=== PATIENT | female | born 1960 | race African-American/Black ===

== ENCOUNTER 2016-12-10 09:40 | Inpatient (IN) ==
[2016-12-10 10:13] LABS: Basophils % 0.3 % (0.0-0.8); Eosinophils # 0.2 10*3/uL (0.0-0.87); Eosinophils % 2.2 % (0.00-10.9); Hematocrit 44.7 VOL% (35.7-47.0); Hemoglobin 15.6 GM/DL (12.0-16.0); Immature Granulocytes % 0.4 %; Immature Granulocytes Absolute 0.04 #; Lymphocytes # 3.8 10*3/uL (1.4-4.0); Lymphocytes % 36.6 % (21.3-54.2); Mean Corpuscular HGB Conc 34.9 GM/DL (32-36); Mean Corpuscular Hemoglobin 31 PG (27-34); Mean Corpuscular Volume 87.6 FL (87-102); Mean Platelet Volume 10.3 FL (9.6-12.0); Monocytes # 0.7 10*3/uL (0.11-0.8); Monocytes % 6.7 % (1.7-12.7); Neutrophils # 5.7 10*3/uL (1.4-7.4); Neutrophils % 53.8 % (38.7-73.9); Platelet Count 253 T/CUMM (130-400); Red Cell Distribution Width 13.7 % (9.3-17.3); White Blood Count 10.5 T/CUMM (4-12)
--- NOTE | 2016-12-10 10:21 | CT Report ---
CT brain Indication: Syncope Comparison: 05 December 2015 Technique: Axial CT imaging of the brain is performed without contrast with 3 mm increments. Findings: No evidence of hemorrhage, mass mass effect midline shift or acute infarct seen. The brain parenchyma attenuation and differentiation appears within normal limits. The ventricles and cisterns are normal in caliber. No cranial or skull base abnormality is identified. Impression: No evidence of acute process demonstrated. This CT exam was performed using one or more the following dose reduction techniques: Automated exposure control, adjustment of the MA and/or KV according to patient size, or use of iterative reconstruction technique. PROCEDURE INTERPRETED AT [facility] DEPARTMENT OF RADIOLOGY Final Report Signed by: Dr. Dejon Hairston
[2016-12-10 10:51] LABS: Alanine Aminotransferase 34 U/L (13-56); Albumin 4.3 G/DL (3.4-5.0); Alkaline Phosphatase 95 U/L (45-117); Aspartate Amino Transferase 27 U/L (0-37); Blood Urea Nitrogen 13 MG/DL (7-18); Calcium 9.8 MG/DL (8.5-10.1); Glucose 104 MG/DL (74-106); Magnesium 2.6 MG/DL (1.8-2.4); Osmolality,Calculated 269.1 MOS/KG (273-304); Sodium 135 MMOL/L (136-145); Total Protein 8.4 G/DL (6.4-8.3); Troponin I Only < 0.015 NG/ML (0.00-0.045)
[2016-12-10] MEDS ORDERED: ALBUTEROL/IPRATROPIUM 3 ML NEB RESP TX STA (11:17)
[2016-12-10] MEDS ORDERED: METHOCARBAMOL 500 MG TABLET PO PRN (11:21)
--- NOTE | 2016-12-10 11:21 | Emergency Department Note ---
Gianni Fuentes Manpreet, am scribing for, and in the presence of, Edmund Sanchez MD 10:31. Daniel Fuentes Phillip K, MD, personally performed the services described in this documentation, ascribed by Andrew Archer in my presence, and it is both accurate and complete . Arrival - Arrival Chief Complaint: Syncope ED Nursing Triage Note: pt was doing PT and when she went to stand up she passed out. Mode of Arrival: Stretcher Limitations: No Limitations Source: Patient, Family (Son), Bystander (PT report) Time Seen by Provider: 12/10/16 09:59 - History of Present Illness HPI Narrative: 56 y/o female who presents to the ED S/P having a syncopal episode when doing PT this AM. Pt states she does not know what happened. 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 Pt's son states they walked to PT this AM from home. Pt currently c/o cough, SOB, left-sided tingling. Pt reports of tobacco use qd at home but also takes breathing treatments. Pt sates she woke up with muscle cramps this AM. According to PT report, the pt initially reported to PT with shoulder pain which was relieved with ROM exercises. Pt was passed out for 2 minutes per PT report. No other pains/complaints reported to the ED. Onset (ago): hour(s) (This AM) Consistency: now resolved Severity: mild Allergies/Adverse Reactions: Allergies Allergy/AdvReac Type Severity Reaction Status Date / Time Penicillins AdvReac Swelling Verified 07/05/15 14:27 of Lip/Tongue/Throat Home Medications: Home Medications Medication Instructions Recorded Confirmed Type Albuterol Neb [Proventil Neb] 2.5 mg RESP TX Q4H PRN 12/05/15 12/10/16 History Methocarbamol Tab [Robaxin Tab] 500 mg PO QID PRN #20 tablet 12/05/15 12/10/16 Rx Amlodipine Besylate 5 mg PO QAM 12/10/16 12/10/16 History Ipratropium/Albuterol Inhaler 1 puff INH QID 12/10/16 12/10/16 History [Combivent Respimat Inhaler] Meloxicam [Mobic] 7.5 mg PO QAM 12/10/16 12/10/16 History Tramadol HCl [Tramadol Tab] 50 mg PO BID 12/10/16 12/10/16 History Review of System - Review of System 12 point system: reviewed and no additional remarkable complaints except as stated - Review of System Constitutional: Absent: chills, diaphoresis, fever Respiratory: Present: cough, respiratory distress, wheezing Cardiovascular: Present: syncope. Absent: chest pain Gastrointestinal: Present: abdominal pain. Absent: nausea, vomiting, diarrhea Genitourinary female: Absent: dysuria Musculoskeletal: Absent: arm pain, back pain Neurological: Present: paresthesias (in Left leg). Absent: headache, weakness, numbness Medical,Surgical,& Family Hx - Medical History Cardio: History of: Hypertension Psychological: History of: Anxiety Disorders, Behavior Problems, Bipolar Disorder, Psychiatric/Substance Abuse Tx (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.), Schizophrenia, Psychiatric Problems ("nerves") Neurology: History of: TIA HEENT: History of: Dental Problems Rheumatology: History of;: Rheumatological Problems Respiratory: History of: Asthma Musculoskeletal: History of: Back/Neck Problems - Surgical History Abdominal Surgeries: Surgical HX of: Abdominal Surgery (unspecified bowel surgery) - Family History Family History: Reports;: Family Cancer (mother , sister), Family Diabetes ( mother,sister), Family Heart Disease (sister), Family Stroke (sister) - Social History Smoking Status: Never smoker Frequency of Alcohol Use: None Type of Drug Use: None Exam Vital Signs: Vital Signs Temperature 97.7 F 12/10/16 09:41 Pulse Rate 87 12/10/16 09:41 Respiratory Rate 16 12/10/16 09:58 Blood Pressure 142/92 12/10/16 09:41 O2 Sat by Pulse Oximetry 100 12/10/16 09:41 - General General appearance: alert - Head Head exam: Present: atraumatic, normocephalic, normal inspection - Eye Eye exam: Present: normal appearance, PERRL, EOMI - ENT ENT exam: Present: normal exam, normal oropharynx, mucous membranes moist, TM's normal bilaterally - Neck Neck exam: Present: normal inspection, full ROM, trachea midline. Absent: tenderness - Chest Chest inspection: Present: normal inspection, symmetric chest wall rise - Respiratory Respiratory exam: Present: wheezes. Absent: respiratory distress - Cardiovascular Cardiovascular exam: Present: regular rate, normal rhythm, normal heart sounds. Absent: murmur, rubs, gallop - Abdominal Exam Abdominal exam: Present: soft, normal bowel sounds. Absent: distention, tenderness, guarding - Extremities Exam Extremities exam: Present: normal inspection. 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 Absent: tenderness - Neurological Exam Neurological exam: Present: alert, oriented X3. Absent: CN II-XII intact - Psychiatric Psychiatric exam: Present: normal affect, normal mood - Skin Skin exam: Present: warm, dry, intact, normal color. Absent: pallor Results - Labs CBC & BMP: 12/10/16 09:54 12/10/16 09:54 Lab Results: I have reviewed the patients labs Labs: Laboratory Tests 12/10/16 09:54 WBC 10.5 RBC 5.10 Hgb 15.6 Hct 44.7 MCV 87.6 MCH 31 MCHC 34.9 RDW 13.7 Plt Count 253 MPV 10.3 Laboratory Tests 12/10/16 09:54 Sodium 135 L Potassium 5.0 Chloride 107 Carbon Dioxide 21 Anion Gap 12.0 BUN 13 Creatinine 1.10 H GFR Calculation 58 BUN/Creatinine Ratio 11.00 Glucose 104 Calculated Osmolality 269.1 L Calcium 9.8 Magnesium 2.6 H AST 27 Total Protein 8.4 H Globulin 4.1 H Albumin/Globulin Ratio 1.0 L - EKG EKG results: interpreted by [facility], sinus rhythm (Old septal GA) - Diagnostic Findings Procedure: Chest x-ray: image reviewed by me (Nothing acute), CT: report reviewed by me ("CT brain w/o con: No evidence of acute process demonstrated.") Disposition Clinical Impression: Syncope, Possible CVA with left hemiparesis Clinical Impression: (Ruled Out): Case discussed with: patient Disposition: Still a Patient Condition: Guarded Additional Instructions: Admit to the hospitalist.
[2016-12-10] MEDS ORDERED: ALBUTEROL 2.5 MG/3 ML NEB RESP TX PRN (11:23)
--- NOTE | 2016-12-10 11:37 | XRay Report ---
XR chest 1V portable Indication: Shortness of breath Comparison: 16 July 2016 Findings: The heart and mediastinum are normal in size and configuration. The pulmonary vascularity is normal in caliber. No lung infiltrates, effusions, pneumothorax or other abnormality is demonstrated. Impression: Normal chest x-ray PROCEDURE INTERPRETED AT [facility] DEPARTMENT OF RADIOLOGY Final Report Signed by: Dr. Dejon Hairston
[2016-12-10 11:45] LABS: Barbiturates Screen,Urine Negative (Negative); Benzodiazepines Screen,Urine Negative (Negative); Cannabinoid Screen,Urine Positive (Negative); Opiate Screen,Urine Negative (Negative); Phencyclidine Screen,Urine Negative (Negative)
--- NOTE | 2016-12-10 12:18 | Hospitalist History & Physical ---
<Brian Pineda - Last Filed: 12/10/16 11:50> Assessment and Plan (1) Nicotine addiction Status: Acute Assessment and plan: The patient reports current cigarette and marijuana use. Discussed with patient in great detail with the merits associated with resuscitation of both cigarette and marijuana use. The patient reports that she currently smokes both cigarettes and marijuana because she "has nothing else to do". Nicotine patch has been offered and ordered for use during the clinical encounter. Current Visit: Yes Qualifiers: Nicotine product type: cigarettes (2) Syncope Status: Acute Assessment and plan: Witnessed syncope episode during the patient's outpatient therapy session. The patient reports that she has had episodes similar in the past and attributed them to her asthma exacerbation. We will obtain carotid Dopplers. Given the patient's complicated neurological history, we will consult neurology to evaluate. Current Visit: Yes (3) Asthma Status: Acute Assessment and plan: The patient reports current nicotine and marijuana use. She reports that the use of cigarettes and marijuana help "keep her from having asthma attacks". She reports that she has been experiencing frequent asthma attacks since she stopped using crack cocaine. We will start intravenous corticosteroids, inhaled bronchodilators, and gentle rehydration. Current Visit: Yes Qualifiers: Asthma severity: unspecified severity Asthma complication type: with acute exacerbation Qualified Code(s): J45.901 - Unspecified asthma with (acute) exacerbation History of Present Illness Chief complaint: Left-sided weakness/syncope History of present illness: This is a 56-year-old female that presented to the ED at [facility] from the outpatient therapy service department here at [facility] for the further evaluation of left-sided weakness and syncope. The patient has a medical history significant for cerebrovascular accident, hypertension, asthma, anxiety, polysubstance abuse, bipolar disorder, schizophrenia, nicotine addiction, cannabis addiction, transient ischemic attack , and chronic neck and back pain. Patient has a surgical history significant for a bowel surgery. Apparently, the patient was participating in her physical therapy session this morning when the above episode occurred. The patient reported that she was exercising with her therapist when she suddenly started to experience some shoulder pain and experienced a subsequent syncopal episode. A rapid response alert was called by the therapy department. The patient was then accompanied to the ED for further evaluation. The patient was noted to be experiencing respiratory distress at the time of ED presentation. Prolonged bronchodilator treatments were initiated and the patient was placed on high flow supplemental oxygen. Labs were obtained which were significant for sodium 135, creatinine 1.10, magnesium 2.6, total protein 8.4, globulin 4.1, and calculated osmolality 269.1. CT was significantly unremarkable for the presence of hemorrhage, mass, mass-effect, midline shift, or acute infarct. Chest x-ray was significantly unremarkable for the presence of any acute cardiopulmonary processes. Urine toxicology was positive for cannabinoids. After brief discussion with both Dr. Sanchez and Dr. Galindo, the patient will be admitted to the hospitalist service for continuation of care. Due to the complexity of the patient's neurological history, a neurology consultation has been requested. Home medications have been reviewed and reconciled. CODE STATUS discussed; patient is a FULL CODE. Home Medications Medication Instructions Recorded Confirmed Type RX: Albuterol Neb [Proventil Neb] 2.5 mg RESP TX Q4H PRN 12/05/15 12/10/16 History RX: Methocarbamol Tab [Robaxin Tab] 500 mg PO QID PRN #20 tablet 12/05/15 Rx RX: Amlodipine Besylate 5 mg PO QAM 12/10/16 12/10/16 History RX: Ipratropium/Albuterol Inhaler 1 puff INH QID 12/10/16 12/10/16 History [Combivent Respimat Inhaler] RX: Meloxicam [Mobic] 7.5 mg PO QAM 12/10/16 12/10/16 History RX: Tramadol HCl [Tramadol Tab] 50 mg PO BID 12/10/16 12/10/16 History Allergies Allergy/AdvReac Type Severity Reaction Status Date / Time Penicillins AdvReac Swelling Verified 07/05/15 14:27 of Lip/Tongue/Throat Medical,Surgical,& Family Hx - Medical History Cardio: History of: Hypertension Psychological: History of: Anxiety Disorders, Behavior Problems, Bipolar Disorder, Psychiatric/Substance Abuse Tx (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.), Schizophrenia, Psychiatric Problems ("nerves") Neurology: History of: TIA HEENT: History of: Dental Problems Rheumatology: History of;: Rheumatological Problems Respiratory: History of: Asthma Musculoskeletal: History of: Back/Neck Problems - Surgical History Abdominal Surgeries: Surgical HX of: Abdominal Surgery (unspecified bowel surgery) - Family History Family History: Reports;: Family Cancer (mother , sister), Family Diabetes ( mother,sister), Family Heart Disease (sister), Family Stroke (sister) - Social History Smoking Status: Current every day smoker Have you smoked in the last 12 months: Yes Time spent discussing smoking cessation with patient: 3 to 10 minutes Frequency of Alcohol Use: Occasionally Type of Drug Use: None, Marijuana Marital Status: Single Lives With:: Alone Functional capacity: independent ambulation 12 point system: reviewed and no additional remarkable complaints except as stated Exam - Constitutional Vitals: Period Temp Pulse Resp BP Sys/Powell Pulse Ox Last 24 Hr 97.7 F-97.7 F 87-123 16-28 142-142/92-92 95-100 General appearance: normal weight, no acute distress - Head Head exam: Present: normal inspection, normocephalic, atraumatic - Eye Eye exam: Present: EOMI. Absent: conjunctival injection Pupils: Present: YAZAN, normal accommodation - ENT ENT exam: Present: normal exam, normal external ear exam, normal oropharynx - Neck Neck exam: Present: normal inspection. Absent: lymphadenopathy, meningismus, tenderness, thyromegaly - Respiratory Respiratory exam: Present: wheezes. Absent: rales, rhonchi, stridor - Cardiovascular Cardiovascular exam: Present: bradycardia, irregular rhythm, regular rate and rhythm. Absent: carotid bruit, diastolic murmur, gallop, JVD, rubs, systolic murmur - GI/Abdominal GI/Abdominal exam: Present: normal bowel sounds, soft - Extremities Exam Extremities exam: Present: normal inspection, normal capillary refill, full ROM , edema, other (Left upper extremity and lower extremity weakness.) - Back Exam Back exam: Present: normal inspection - Neurological Exam Neurological exam: Present: alert, oriented X3, CN II-XII intact, other (Left upper and lower extremity weakness) - Psychiatric Psychiatric exam: Present: normal affect - Skin Skin exam: Present: normal color, warm, dry Results - Labs CBC & BMP: 12/10/16 09:54 12/10/16 09:54 Lab Results: I have reviewed the past 24 hour labs <Uli Galindo - Last Filed: 12/10/16 16:50> History of Present Illness History of present illness: Patient seen and examined independently of CHAMP Pineda, brenda with history, assessment and plan as documented. Patient being admitted with sob and syncope. Treating for COPD with duonebs and steroids. CT PE negative for PE but did show changes of COPD. Patient reports an ongoing history of syncope. Check orthostatic vitals. Neurology has been consulted. MRI ordered. Exam - Constitutional Vitals: Period Temp Pulse Resp BP Sys/Powell Pulse Ox Last 24 Hr 97.7 F-98.8 F 81-123 16-28 142-149/86-92 95-100 Results - Labs CBC & BMP: 12/10/16 09:54 12/10/16 09:54
--- NOTE | 2016-12-10 12:25 | Ultrasound Report ---
US carotid duplex BI Indication: Syncope. Comparison: None. Technique: Multiple longitudinal and transverse real-time sonographic images of the bilateral carotid arterial systems are obtained with grayscale, spectral, and color Doppler analysis. Findings: Peak systolic velocities within the right CCA, proximal ICA, and distal ICA are 77, 38, and 73 cm/s respectively. Peak systolic velocities within the left CCA, proximal ICA, and distal ICA are 60, 39, and 64 cm/s respectively. ICA/CCA ratios on the right and left are 0.9 and 1.1 respectively. Antegrade flow demonstrated within the bilateral vertebral arteries. Grayscale imaging demonstrates mild bilateral atherosclerotic plaque. IMPRESSION: No convincing sonographic evidence of significant (50% or greater) narrowing of either cervical internal carotid artery. Indirect NASCET criteria utilized. PROCEDURE INTERPRETED AT [facility] DEPARTMENT OF RADIOLOGY Final Report Signed by: Dr Sam Kimbrough
[2016-12-10] MEDS ORDERED: diphenhydrAMINE CAP 25 MG CAPSULE PO PRN (12:34)
[2016-12-10] MEDS ORDERED: ONDANSETRON 4 MG/2 ML VIAL IV PRN (12:34)
[2016-12-10] MEDS: ALBUTEROL/IPRATROPIUM 3 ML NEB RESP TX SCH ×2 (14:34→19:15)
[2016-12-10] MEDS: methylPREDNISolone SOD SUC 125 MG/2 ML VIAL IV SCH ×3 (14:40→23:11)
[2016-12-10] MEDS: ENOXAPARIN 40 MG/0.4 ML SYRINGE SUBCUT SCH (14:40)
[2016-12-10] MEDS: NICOTINE 21 MG/24 HR PATCH TRANSDERM PRN (14:41)
[2016-12-10] MEDS: SODIUM CHLORIDE 0.9% 1,000 ML IV SCH (14:41)
--- NOTE | 2016-12-10 15:23 | Neurology Consult Note ---
History of Present Illness History of present illness: This is a 56-year-old right-handed medical that presented to the ED at [facility] from the outpatient therapy service department here at [facility] for the further evaluation of left- sided weakness, pain and syncope. The patient has a medical history significant for cerebrovascular accident, hypertension, asthma, anxiety, polysubstance abuse, bipolar disorder, schizophrenia, nicotine addiction, cannabis addiction, transient ischemic attack, and chronic neck and back pain. Apparently, the patient was participating in her physical therapy session this morning when the above episode occurred. The patient reported that she was exercising with her therapist when she suddenly started to experience some shoulder pain and experienced a subsequent syncopal episode. A rapid response alert was called by the therapy department. No generalized tonic-clonic activity reported. No tongue biting or urinary incontinence reported. Patient is presently crying because of significant pain in the left side of the whole body starting from neck to the toe. CT of the head is unremarkable for any acute pathology. Carotid ultrasound is unremarkable as well. Patient does smoke on a regular basis. Home Medications Medication Instructions Recorded Confirmed Type Albuterol Neb [Proventil Neb] 2.5 mg RESP TX Q4H PRN 12/05/15 12/10/16 History Methocarbamol Tab [Robaxin Tab] 500 mg PO QID PRN #20 tablet 12/05/15 12/10/16 Rx Amlodipine Besylate 5 mg PO QAM 12/10/16 12/10/16 History Ipratropium/Albuterol Inhaler 1 puff INH QID 12/10/16 12/10/16 History [Combivent Respimat Inhaler] Meloxicam [Mobic] 7.5 mg PO QAM 12/10/16 12/10/16 History Tramadol HCl [Tramadol Tab] 50 mg PO BID 12/10/16 12/10/16 History Allergies Allergy/AdvReac Type Severity Reaction Status Date / Time Penicillins AdvReac Swelling Verified 07/05/15 14:27 of Lip/Tongue/Throat 12 point system: reviewed and no additional remarkable complaints except as stated Medical,Surgical,& Family Hx - Medical History Cardio: History of: Hypertension Psychological: History of: Anxiety Disorders, Behavior Problems, Bipolar Disorder, Psychiatric/Substance Abuse Tx (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.), Schizophrenia, Psychiatric Problems ("nerves") Neurology: History of: Cerebrovascular Accident (2011), TIA HEENT: History of: Eye Problem (glasses), Dental Problems Rheumatology: History of;: Rheumatological Problems Respiratory: History of: Asthma, COPD, Obstructive Sleep Apnea Gastrointestinal: History of: GERD Musculoskeletal: History of: Amputation (right index finger), Back/Neck Problems - Surgical History Neurologic Surgeries: Patient denies: Neurologic Surgery Abdominal Surgeries: Surgical HX of: Abdominal Surgery (unspecified bowel surgery) Reproductive Surgeries: Surgical HX of;: Hysterectomy (patial) Patient denies;: Genitourinary Surgery - Family History Family History: Reports;: Family Cancer (mother , sister), Family Diabetes ( mother,sister), Family Heart Disease (sister), Family Stroke (sister) - Social History Smoking Status: Current every day smoker Frequency of Alcohol Use: None Type of Drug Use: None, Marijuana Exam - Constitutional Vitals: Period Temp Pulse Resp BP Sys/Powell Pulse Ox Last 24 Hr 97.7 F-97.7 F 87-123 16-28 142-142/92-92 95-100 Exam: GENERAL: Patient is in no acute distress. NECK: Neck is supple. There is no JVD. No carotid bruits present. No thyroid masses. CVS: First and second heart sounds are normal. There is no S3 present. Regular rate and rhythm. RESPIRATORY: Lungs are clear to auscultation without any rales or rhonchi. ABDOMEN: Soft and non-tender. Bowel sounds are present. There is no hepatosplenomegaly. EXT: There is no palpable edema. Peripheral pulses are present. Skin: No rashes Central Nervous system: General: Alert, awake and Oriented x 3 Speech: Fluent Comprehension: Intact and normal Facial expressions: Normal Cranial Nerves: CN1/Olfactory: Normal CN II/ Optic: Normal, Visual Manjarrez unreliable CN III, and : YAZAN & EOMI CN V: Normal & intact CN VII: face is symmetric CNVIII: Normal CN XI/X/XI/XII: Intact and Normal Motor: Bulk and Tone is normal. Strength in the right 5/5 Strength in the left 3/5 with significant giveaway weakness Sensory: Grossly intact for all the modalities of PP, LT and temp sense Reflexes: 1+ and symmetrical Cerebellar function: Normal finger to nose and heel to lawrence testing in the right and she is not participating in the left. Toes: Equivocal Gait: Not tested at this time Results - Labs CBC & BMP: 12/10/16 09:54 12/10/16 09:54 Assessment and Plan (1) Pain of left side of body Status: Acute Assessment and plan: Etiology is not clear. I suspect a cervical disc disease. Consult pain management MRI cervical spine Current Visit: Yes (2) Syncope Status: Acute Assessment and plan: EEG MRI brain Current Visit: Yes
--- NOTE | 2016-12-10 16:09 | CT Report ---
CT the chest with intravenous contrast, PE protocol. Indication: Shortness of breath and chest pain. 80 cc Omni 350. Axial images were obtained with sagittal and coronal 2-D and 3-D reconstructions. Comparison is made with a previous exam from February 02, 2008. There is no evidence of pulmonary thromboembolism. The heart size is normal. There is mild bland plaque in a normal caliber thoracic aorta. There is no pericardial or pleural effusion. There is no mediastinal or hilar lymphadenopathy. The lung rodriguez are hyperexpanded. Centrilobular emphysematous changes are present as well as interstitial fibrosis. Degenerative changes are noted within the spinal column. Impression: Findings of COPD. No evidence of pulmonary thromboembolism. The CT exam was performed using one or more of the following dose reduction techniques: Automated exposure control, adjustment of the mA and/or kV according to patient size, or use of iterative reconstruction technique. PROCEDURE INTERPRETED AT [facility] DEPARTMENT OF RADIOLOGY Final Report Signed by: Dr. Hilda Miranda
[2016-12-10] MEDS: CYCLOBENZAPRINE 10 MG TABLET PO PRN (17:33)
[2016-12-10] MEDS: ACETAMINOPHEN 325 MG TABLET PO PRN (17:38)
[2016-12-10] MEDS: traMADol 50 MG TABLET PO SCH (20:09)
[2016-12-10] MEDS: DOCUSATE SODIUM 100 MG CAPSULE PO SCH (20:09)
[2016-12-10] MEDS: ZALEPLON 5 MG CAPSULE PO PRN (21:44)
[2016-12-11] MEDS: ALBUTEROL/IPRATROPIUM 3 ML NEB RESP TX SCH ×4 (00:05→19:39)
[2016-12-11] MEDS: ACETAMINOPHEN 325 MG TABLET PO PRN (03:14)
[2016-12-11] MEDS: methylPREDNISolone SOD SUC 125 MG/2 ML VIAL IV SCH ×3 (05:07→17:41)
[2016-12-11 06:04] LABS: Hematocrit 41.3 VOL% (35.7-47.0); Hemoglobin 14.1 GM/DL (12.0-16.0); Immature Granulocytes % 0.6 %; Immature Granulocytes Absolute 0.05 #; Lymphocytes # 1.5 10*3/uL (1.4-4.0); Lymphocytes % 17.1 % (21.3-54.2); Mean Corpuscular HGB Conc 34.1 GM/DL (32-36); Mean Corpuscular Hemoglobin 30 PG (27-34); Mean Corpuscular Volume 87.7 FL (87-102); Mean Platelet Volume 11.6 FL (9.6-12.0); Monocytes % 0.5 % (1.7-12.7); Neutrophils # 7.1 10*3/uL (1.4-7.4); Neutrophils % 81.8 % (38.7-73.9); Platelet Count 194 T/CUMM (130-400); Red Blood Count 4.71 MC/CUMM (3.8-5.5); Red Cell Distribution Width 13.3 % (9.3-17.3); White Blood Count 8.6 T/CUMM (4-12)
[2016-12-11] MEDS: SODIUM CHLORIDE 0.9% 1,000 ML IV SCH ×2 (06:44→13:06)
[2016-12-11 06:49] LABS: Band Neutrophils 12 % (0-10); Hypochromasia 1+; Lymphocytes 18 % (20-55); Platelet Estimate Adequate; Segmented Neutrophils 69 % (50-85); Total Cells Counted 100
[2016-12-11 06:57] LABS: Albumin 3.7 G/DL (3.4-5.0); Bilirubin,Total 0.9 MG/DL (0.2-1.0); Calcium 9.7 MG/DL (8.5-10.1); Osmolality,Calculated 273.8 MOS/KG (273-304); Potassium 4.4 MMOL/L (3.5-5.1); Risk Ratio 3.19; Total Protein 7.2 G/DL (6.4-8.3); VLDL CHOLESTEROL 36.6 MG/DL
--- NOTE | 2016-12-11 08:02 | XRay Report ---
Exam: XR chest 1V portable Date: 12/11/2016 4:00 AM Indication: Shortness of breath Comparison: 12/10/2016 Technical: AP Findings: External cardiac leads are present. The heart is normal in size. The mediastinum is unremarkable. The bony structures are intact. Mild thickening of the minor fissure is present. No pneumothorax. Oxygen tubing superimposes exam. Impression: 1. Minimal thickening of the minor fissure without consolidating infiltrates or effusions PROCEDURE INTERPRETED AT [facility] DEPARTMENT OF RADIOLOGY Final Report Signed by: Dr. Josh Clements
--- NOTE | 2016-12-11 08:05 | EKG Report ---
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
--- NOTE | 2016-12-11 08:44 | Neurology Progress Note ---
Neurology - PN : Subjective Interval history: Left-sided pain is better however patient is complaining of some headache today. Slept well last night. MRI of the brain, cervical spine and EEG are all pending. Drug screen is positive for cannabinoids. Exam (Progress Note) - Constitutional Vitals: Period Temp Pulse Resp BP Sys/Powell Pulse Ox Last 24 Hr 97.7 F-98.8 F 81-123 16-28 119-186/72-96 92-100 Exam: GENERAL: Patient is in no acute distress. NECK: Neck is supple. There is no JVD. No carotid bruits present. No thyroid masses. CVS: First and second heart sounds are normal. There is no S3 present. Regular rate and rhythm. RESPIRATORY: Lungs are clear to auscultation without any rales or rhonchi. ABDOMEN: Soft and non-tender. Bowel sounds are present. There is no hepatosplenomegaly. EXT: There is no palpable edema. Peripheral pulses are present. Skin: No rashes Central Nervous system: General: Alert, awake and Oriented x 3 Speech: Fluent Comprehension: Intact and normal Facial expressions: Normal Cranial Nerves: CN1/Olfactory: Normal CN II/ Optic: Normal, Visual Manjarrez unreliable CN III, and : YAZAN & EOMI CN V: Normal & intact CN VII: face is symmetric CNVIII: Normal CN XI/X/XI/XII: Intact and Normal Motor: Bulk and Tone is normal. Strength in the right 5/5 Strength in the left 3/5 with significant giveaway weakness Sensory: Grossly intact for all the modalities of PP, LT and temp sense Reflexes: 1+ and symmetrical Cerebellar function: Normal finger to nose and heel to lawrence testing in the right and she is not participating in the left. Toes: Equivocal Gait: Not tested at this time Results - Labs CBC & BMP: 12/11/16 04:44 12/11/16 04:44 Assessment and Plan (1) Pain of left side of body Status: Acute Assessment and plan: Pending MRI cervical spine Current Visit: Yes (2) Syncope Status: Acute Assessment and plan: Pending EEG Pending MRI brain This could very well be due to recreational drug use/abuse behavior Current Visit: Yes
[2016-12-11] MEDS: traMADol 50 MG TABLET PO SCH ×2 (08:53→20:11)
[2016-12-11] MEDS: PANTOPRAZOLE 40 MG TABLET PO SCH (08:53)
[2016-12-11] MEDS: NICOTINE 21 MG/24 HR PATCH TRANSDERM PRN (08:53)
[2016-12-11] MEDS: amLODIPine 5 MG TABLET PO SCH (08:53)
[2016-12-11] MEDS: MELOXICAM 7.5 MG TABLET PO SCH (08:53)
[2016-12-11] MEDS: CYCLOBENZAPRINE 10 MG TABLET PO PRN (08:53)
[2016-12-11] MEDS: DOCUSATE SODIUM 100 MG CAPSULE PO SCH ×2 (08:53→20:12)
[2016-12-11] MEDS: guaiFENesin 200 MG/10 ML UDCUP PO SCH ×2 (11:22→20:12)
[2016-12-11] MEDS: MORPHINE 2 MG/1 ML SYRINGE IV PRN ×2 (11:22→15:31)
--- NOTE | 2016-12-11 11:32 | XRay Report ---
XR chest 1V portable Indication: Pulmonary congestion Comparison: 11 December 2016 at 7:50 AM Findings: The heart and mediastinum are normal in size and configuration. The pulmonary vascularity is normal in caliber. Lung volumes are increased with prominent bronchial markings. No lung infiltrates, effusions, pneumothorax or other abnormality is demonstrated. Impression: Chronic lung changes. No acute process or significant change. PROCEDURE INTERPRETED AT [facility] DEPARTMENT OF RADIOLOGY Final Report Signed by: Dr. Dejon Hairston
--- NOTE | 2016-12-11 13:00 | Event Note ---
Came by for consultation visit, patient was at MRI
--- NOTE | 2016-12-11 13:01 | Physician Query Form ---
CLICK EDIT DOCUMENT TO SELECT QUERY ANSWER --> OK --> SIGN Yvonne Torres RN Clinical Planning Associate W) [phone] (f) [phone] [email or web address] PROVIDERS: Make your selection(s) from the choices in EACH section by typing an "x" and enter comments in the comment section. Please use your independent medical judgment in providing your response. This request does not imply that any particular answer is desired or expected. CLINICAL INDICATORS: (Providers should not edit this section) Based on documentation of "Acute asthma with exacerbation" " experiencing respiratory distress at the time of ED presentation. Prolonged bronchodilator treatments were initiated and the patient was placed on high flow supplemental oxygen." "Tachypnea" "Short of breath" Venti mask with oxygen flow of 9L applied. If possible, please further clarify the type and acuity of respiratory diagnosis : ACUITY: ( x) Acute ( ) Chronic ( ) Acute on Chronic TYPE: ( x) Respiratory failure with hypoxia ( ) Respiratory failure with hypercapnia ( ) Respiratory Arrest ( ) Postprocedural/postoperative respiratory failure ( ) ARDS (Adult/Acute Respiratory Distress Syndrome) ( ) Other, please specify: ( ) Clinically unable to determine Recognized criteria for respiratory failure PH <7.35 or >7.45 PO2 <60 PCO2 >50 RR >24 O2 Sat <90% on RA or <95% on O2 Use of accessory muscles Unable to speak in full sentences Intubation is not required COMMENTS: PLEASE ALSO DOCUMENT RESPONSE IN PROGRESS NOTES AND/OR DISCHARGE SUMMARY Use of terms such as suspected, likely, or probable (associated with a specific diagnosis that is being evaluated, monitored, or treated as if it exists) are acceptable and can be restated in the discharge summary if not ruled out. MTDD
[2016-12-11] MEDS: ENOXAPARIN 40 MG/0.4 ML SYRINGE SUBCUT SCH (13:03)
--- NOTE | 2016-12-11 13:06 | Magnetic Resonance Report ---
Exam: MR head/brain wo con Date: 12/11/2016 1201 PM Comparison: None Indication: Syncope Technical: 1.5 Meredith magnet Axial T1 pre-and ADC, DWI, FLAIR, gradient echo and FSE T2 Sagittal T1 precontrast, Coronal FSE T2 Contrast:0 cc Dotarem Findings: Exam reveals no acute ADC/ diffusion imaging abnormality. The brainstem, cerebellum exhibit normal signal characteristics. The cerebral hemispheres exhibit normal signal characteristics. The corpus callosum is unremarkable. The seventh and eighth cranial nerves and cerebral pontine angles are intact. The pituitary gland, infundibulum and optic chiasm are intact. The paranasal sinuses exhibit mild inflammation within the ethmoid sinuses. Minimal inflammation in the frontal sinuses bilaterally. The maxillary and sphenoid sinuses are demonstrated with normal signal characteristics. The mastoid sinuses are demonstrated with fluid in the right mastoid sinuses compared to the left. The globes and intra-and extraconal spaces are unremarkable. Impression: 1. Mild inflammation in the ethmoid and frontal sinuses bilaterally. 2. Right mastoid inflammatory sinus changes also present 3. No acute hemorrhage, infarction or mass effect. PROCEDURE INTERPRETED AT [facility] DEPARTMENT OF RADIOLOGY Final Report Signed by: Dr. Josh Clements
--- NOTE | 2016-12-11 13:12 | Magnetic Resonance Report ---
Exam: MR cervical spine wo con Date: 12/11/2016 1217 PM Comparison: None Indication: Left-sided weakness pain Technical: 1.5 Meredith magnet Axial and sagittal images were obtained without gadolinium enhancement. Findings: The lower brainstem and cerebellum are intact. No obvious syrinx or myelomalacia change present. Degenerative marrow signal present. C2/3:The exam reveals no obvious bulging or herniation. The nerve roots reveal slight narrowing with uncovertebral osteophytic spur present bilaterally. Right worse than left. C3/4:The exam reveals mild central bulging. Minimal uncovertebral osteophytic spur present.. The nerve roots exit without entrapment or encroachment. C4/5:The exam reveals bulging of disc with with osteophytic spurring and narrowing of the neural foramina canals bilaterally. C5/6:The exam reveals mild bulging with uncovertebral osteophytic spurring slight narrowing of neural foraminal canals bilaterally.. C6-7:The exam reveals broad-based bulge is present uncovertebral aspect spurring is present with mild narrowing the neural foramina canals. C7-T1:The exam reveals minimal bulge without focal protrusion. The nerve roots exit without entrapment or encroachment. Impression: 1. 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 Josh Clements
--- NOTE | 2016-12-11 14:45 | Physician Query Form ---
CLICK EDIT DOCUMENT TO SELECT QUERY ANSWER --> OK --> SIGN Yvonne Torres RN Clinical Goat Herder W) [phone] (f) [phone] [email or web address] PROVIDERS: Make your selection(s) from the choices in EACH section by typing an "x" and enter comments in the comment section. Please use your independent medical judgment in providing your response. This request does not imply that any particular answer is desired or expected. CLINICAL INDICATORS: (Providers should not edit this section) Based on documentation of "Acute asthma" "Asthma with acute exacerbation" " experiencing respiratory distress at the time of ED presentation. Prolonged bronchodilator treatments were initiated and the patient was placed on high flow supplemental oxygen" History of asthma. Based on documentation of Asthma, can you please provide further specificity regarding the diagnosis? ( ) Mild intermittent extrinsic asthma with acute exacerbation ( ) Mild persistent extrinsic asthma with acute exacerbation ( x) Moderate persistent extrinsic asthma with acute exacerbation ( ) Severe persistent extrinsic asthma with acute exacerbation ( ) Mild intermittent extrinsic asthma with status asthmaticus ( ) Mild persistent extrinsic asthma with status asthmaticus ( ) Moderate persistent extrinsic asthma with status asthmaticus ( ) Severe intermittent extrinsic asthma with status asthmaticus ( ) Other, please specify: ( ) Clinically unable to determine COMMENTS: PLEASE ALSO DOCUMENT RESPONSE IN PROGRESS NOTES AND/OR DISCHARGE SUMMARY Use of terms such as suspected, likely, or probable (associated with a specific diagnosis that is being evaluated, monitored, or treated as if it exists) are acceptable and can be restated in the discharge summary if not ruled out. MTDD
--- NOTE | 2016-12-11 17:14 | Hospitalist Progress Note ---
Assessment and Plan (1) Pain of left side of body Status: Acute Assessment and plan: Cerviacl MRI showed intervertebral discogenic disease throughout the cervical spine with bulging disc and uncovertebral osteophytic spurring without focal herniation or protrusion clearly seen Plan Pain management consult Follow Neurology's recommendations Current Visit: Yes (2) Syncope Status: Acute Assessment and plan: MRI of the brain seen. Follow EEG report. Plan continue current regime Current Visit: Yes (3) HTN (hypertension) Status: Acute Assessment and plan: stable Current Visit: Yes Hospitalist: Subjective Interval history: Patient seen. She complains of cough and a headache. CXr showed chronic lung disease with no acute changes.MRI of the brain showed no acute hemorrhage, showed mild inflammation in the ethmoid and frontal sinuses bilaterally. Exam - Constitutional Vitals: Period Temp Pulse Resp BP Sys/Powell Pulse Ox Last 24 Hr 96.7 F-98.5 F 80-109 16-20 119-149/72-100 92-100 General appearance: no acute distress - Head Head exam: Present: normal inspection - Eye Eye exam: Present: EOMI - Respiratory Respiratory exam: Present: clear to auscultation bilaterally - Cardiovascular Cardiovascular exam: Present: regular rate and rhythm - GI/Abdominal GI/Abdominal exam: Present: normal bowel sounds - Extremities Exam Extremities exam: Present: normal inspection Results - Labs CBC & BMP: 12/11/16 04:44 12/11/16 04:44 Lab Results: I have reviewed the past 24 hour labs
[2016-12-12] MEDS: methylPREDNISolone SOD SUC 125 MG/2 ML VIAL IV SCH ×2 (00:10→05:16)
[2016-12-12] MEDS: ZALEPLON 5 MG CAPSULE PO PRN (00:10)
[2016-12-12] MEDS: ALBUTEROL/IPRATROPIUM 3 ML NEB RESP TX SCH ×2 (00:21→07:00)
[2016-12-12] MEDS: SODIUM CHLORIDE 0.9% 1,000 ML IV SCH (05:18)
[2016-12-12] MEDS: amLODIPine 5 MG TABLET PO SCH (08:33)
[2016-12-12] MEDS: traMADol 50 MG TABLET PO SCH (08:33)
[2016-12-12] MEDS: MELOXICAM 7.5 MG TABLET PO SCH (08:33)
[2016-12-12] MEDS: CYCLOBENZAPRINE 10 MG TABLET PO PRN (08:33)
[2016-12-12] MEDS: guaiFENesin 200 MG/10 ML UDCUP PO SCH (08:34)
[2016-12-12] MEDS: PANTOPRAZOLE 40 MG TABLET PO SCH (08:34)
[2016-12-12] MEDS: DOCUSATE SODIUM 100 MG CAPSULE PO SCH (08:34)
[2016-12-12] MEDS: MORPHINE 2 MG/1 ML SYRINGE IV PRN (08:38)
[2016-12-12] MEDS: NICOTINE 21 MG/24 HR PATCH TRANSDERM PRN (08:41)
--- NOTE | 2016-12-12 08:51 | Neurology Progress Note ---
Neurology - PN : Subjective Interval history: Patient seems to be doing okay. However complaining of severe left-sided numbness and weakness. MRI of the brain and cervical spine are unremarkable. EEG is within normal limits. I am concerned about significant functional element. Exam (Progress Note) - Constitutional Vitals: Period Temp Pulse Resp BP Sys/Powell Pulse Ox Last 24 Hr 97.9 F-98.5 F 63-118 17-20 108-147/71-99 92-99 Exam: GENERAL: Patient is in no acute distress. NECK: Neck is supple. There is no JVD. No carotid bruits present. No thyroid masses. CVS: First and second heart sounds are normal. There is no S3 present. Regular rate and rhythm. RESPIRATORY: Lungs are clear to auscultation without any rales or rhonchi. ABDOMEN: Soft and non-tender. Bowel sounds are present. There is no hepatosplenomegaly. EXT: There is no palpable edema. Peripheral pulses are present. Skin: No rashes Central Nervous system: General: Alert, awake and Oriented x 3 Speech: Fluent Comprehension: Intact and normal Facial expressions: Normal Cranial Nerves: CN1/Olfactory: Normal CN II/ Optic: Normal, Visual Manjarrez unreliable CN III, and : YAZAN & EOMI CN V: Normal & intact CN VII: face is symmetric CNVIII: Normal CN XI/X/XI/XII: Intact and Normal Motor: Bulk and Tone is normal. Strength in the right 5/5 Strength in the left 3/5 with significant giveaway weakness Sensory: Grossly intact for all the modalities of PP, LT and temp sense Reflexes: 1+ and symmetrical Cerebellar function: Normal finger to nose and heel to lawrence testing in the right and she is not participating in the left. Toes: Equivocal Gait: Not tested at this time Results - Labs CBC & BMP: 12/11/16 04:44 12/11/16 04:44 Assessment and Plan (1) Pain of left side of body Status: Acute Assessment and plan: No evidence of a stroke or discogenic disc disease. There is a lot of functional element and recommended psych evaluation. Current Visit: Yes (2) Syncope Status: Acute Assessment and plan: No evidence of seizures. Syncope could very be related to drug abuse. No further recommendations from neuro standpoint Sign off please call as needed Current Visit: Yes
[2016-12-12 10:57] VITALS: BP 131/69
--- NOTE | 2016-12-12 11:03 | Discharge Summary ---
<Brian Pineda - Last Filed: 12/12/16 10:58> Hospital Course - Hospital Course Hospital Course: This is a 56-year-old female that presented to the ED at [facility] from the outpatient therapy service department here at [facility] on the morning of December 10, 2016 for the further evaluation of left-sided weakness and syncope. The patient has a medical history significant for cerebrovascular accident, hypertension, asthma, anxiety , polysubstance abuse, bipolar disorder, schizophrenia, nicotine addiction, cannabis addiction, transient ischemic attack, and chronic neck and back pain. Patient has a surgical history significant for a bowel surgery. Apparently, the patient was participating in her physical therapy session this morning when the above episode occurred. The patient reported that she was exercising with her therapist when she suddenly started to experience some shoulder pain and experienced a subsequent syncopal episode. A rapid response alert was called by the therapy department. The patient was then accompanied to the ED for further evaluation. The patient was noted to be experiencing respiratory distress at the time of ED presentation. Prolonged bronchodilator treatments were initiated and the patient was placed on high flow supplemental oxygen. Labs were obtained which were significant for sodium 135, creatinine 1.10, magnesium 2.6, total protein 8.4, globulin 4.1, and calculated osmolality 269.1. CT was significantly unremarkable for the presence of hemorrhage, mass, mass-effect, midline shift, or acute infarct. Chest x-ray was significantly unremarkable for the presence of any acute cardiopulmonary processes. Urine toxicology was positive for cannabinoids. The patient was subsequently admitted to the hospitalist service for continuation of care. Treatment for a probable chronic obstructive pulmonary disease exacerbation was initiated. Inhaled bronchodilators and intravenous corticosteroids were initiated. A neurology consultation was requested. The patient was evaluated. MRI of the head and brain without contrast was significant for mild inflammation in the ethmoid and frontal sinuses bilaterally , right mastoid inflammatory sinus changes were noted, and the presence of no acute hemorrhage, infarct, or mass-effect is noted. MRI of the cervical spine significant for intravertebral discogenic disease throughout the cervical spine with bulging disc and uncovertebral osteophytic spurring without focal herniation or protrusion was noted. The patient's condition slowly improved. The patient's condition is stable. She has not experienced any significant overnight events. Today, we feel that she is indeed appropriate for discharge to follow-up with her primary care physician as directed. Case management has arranged outpatient transportation for physical therapy. Diagnosis - Discharge Diagnosis (1) Nicotine addiction Status: Chronic (2) Syncope Status: Resolved (3) Asthma Status: Chronic Specialty Discharge - Follow Up or Referrals Follow up with: Daniel Bobby MD [Physician] - (CALL DR BOBBY OFFICE AT [phone] WHEN YOU GET HOME AND THEY WILL SET YOU UP FOR AN APPT) - Speciality Discharge Instructions Hospitalist Instructions: Follow-up with your primary physician in 5-7 days after discharge. Please continue to take all medications as prescribed. Discharge Plan - Discharge Data Disposition: Disch To Home/Self Care Condition at Discharge: Stable Discharge Diet: advance to your usual diet Activity: resume usual activities as tolerated Hygiene: no restrictions Weight Bearing at Discharge: full weight bearing Driving: no restrictions Contact your physician if you experience:: fever over 101, Difficulty voiding, Redness or swelling, Nausea/Vomiting, Shortness of breath, Bleeding, pain uncontrolled by pain medications - Discharge Medications Continue Albuterol Neb [Proventil Neb] 2.5 mg RESP TX Q4H PRN PRN Reason: Shortness Of Breath/Wheezing Methocarbamol Tab [Robaxin Tab] 500 mg PO QID PRN #20 tablet PRN Reason: low back pain/muscle strain Ipratropium/Albuterol Inhaler [Combivent Respimat Inhaler] 1 puff INH QID Amlodipine Besylate 5 mg PO QAM Tramadol HCl [Tramadol Tab] 50 mg PO BID Meloxicam [Mobic] 7.5 mg PO QAM - Follow Up or Referral Follow Up: Daniel Bobby MD [Physician] - (CALL DR BOBBY OFFICE AT [phone] WHEN YOU GET HOME AND THEY WILL SET YOU UP FOR AN APPT) - Forms/Instructions Instructions: Cervical Radiculopathy (GEN) Exam - Constitutional Vitals: Period Temp Pulse Resp BP Sys/Powell Pulse Ox Last 24 Hr 97.9 F-98.5 F 63-118 17-20 108-147/69-99 92-99 General appearance: normal weight, no acute distress - Head Head exam: Present: normal inspection, normocephalic, atraumatic - Eye Eye exam: Present: EOMI. Absent: conjunctival injection Pupils: Present: YAZAN, normal accommodation - ENT ENT exam: Present: normal exam, normal external ear exam, normal oropharynx - Neck Neck exam: Present: normal inspection. Absent: lymphadenopathy, meningismus, tenderness, thyromegaly - Respiratory Respiratory exam: Present: clear to auscultation bilaterally. Absent: rales, rhonchi, stridor, wheezes - Cardiovascular Cardiovascular exam: Present: regular rate and rhythm. Absent: carotid bruit, diastolic murmur, gallop, JVD, rubs, systolic murmur - GI/Abdominal GI/Abdominal exam: Present: normal bowel sounds, soft - Extremities Exam Extremities exam: Present: normal inspection. Absent: edema - Back Exam Back exam: Present: normal inspection - Neurological Exam Neurological exam: Present: alert, oriented X3, CN II-XII intact, other (Mild left-sided weakness noted; 3/5; right side 5/5) - Psychiatric Psychiatric exam: Present: normal affect, normal mood - Skin Skin exam: Present: normal color, warm, dry Discharge Results Procedures and tests throughout hospitalization: MRI brain/head without contrast on December 11, 2016 was significant for the following: mild inflammation in the ethmoid and frontal sinuses bilaterally, right mastoid inflammatory sinus changes, and no acute hemorrhage, infarction or mass effect. MRI cervical spine without contrast on December 11, 2016 was significant for intervertebral discogenic disease throughout the cervical spine with bulging disc and uncovertebral osteophytic spurring without focal herniation or protrusion clearly seen. DS: Provider Date of admission: 12/10/16 11:19 Primary care physician: MACARIO MCKEON NP Attending physician on admission: Uli Galindo MD Consults: 12/10/16 11:23 Consult to Physician [CONS] Routine Comment: Consulting Provider: Guanaco Chaparro Consulting Provider Notified: Yes When should Consulting Provider be notified: Now Consult to Specialist Group: Neurology When should Consulting Provider be notified: Now Person Notified: MARCIANO Date Notified: 12/10/16 Time Notified: 13:13 12/10/16 12:33 Consult to Physician [CONS] Routine Comment: Consulting Provider: 12/11/16 08:02 Consult to Physician [CONS] Routine Comment: Pain Grounds Cleaner Provider: Daniel Bobby Consulting Provider Notified: Yes When should Consulting Provider be notified: Now Consult to Specialist Group: Pain Management When should Consulting Provider be notified: Now Person Notified: ROMARIO Date Notified: 12/11/16 Time Notified: 08:43 12/12/16 09:40 Consult to Physical Therapy [CONS] Routine Reason for Physical Therapy: Evaluate and Treat Start Therapy: Today Consult Comment: Needs rolling walker for home use 12/12/16 10:44 PT [Consult to Physical Therapy] [CONS] Routine Reason for Physical Therapy: Other Consult Comment: NEEDS STAND ROLLING WALKTER BOUGHT TO ROOM FOR HOME Discharging clinician: Brian Pineda CNP <Licha Lozano - Last Filed: 12/12/16 11:50> Hospital Course - Time spent with patient Time with patient DS: Greater than 30 minutes (Time spent greater than 30mins) Diagnosis - Discharge Diagnosis (1) Pain of left side of body Status: Acute (2) Syncope Status: Resolved (3) HTN (hypertension) Status: Acute Discharge Plan - Forms/Instructions Additional Discharge Instructions: Follow with pain management as out patient
== END 2016-12-12 13:04 | disposition home or self-care (01) | DRG 140 ==
LOC: EDBD → EDUNIT# → N.ED 09:40 → N.EDINP 11:19 → SUATTDRO 11:19 → N.EDINP 12:50 → N.4E 12:55
PROVIDERS: ADMIT Internal Medicine; ATTEND Internal Medicine

== ENCOUNTER 2017-09-02 14:11 | Inpatient (IN) ==
[2017-09-02] MEDS ORDERED: diphenhydrAMINE 50 MG/1 ML VIAL IV STA (15:49)
[2017-09-02] MEDS ORDERED: LABETALOL 20 MG/4 ML SYRINGE IV STA (15:53)
[2017-09-02] MEDS ORDERED: LABETALOL 100 MG/20 ML VIAL IV ONE (16:18)
[2017-09-02 16:23] LABS: Basophils % 0.4 % (0.0-0.8); Eosinophils # 0.1 10*3/uL (0.0-0.87); Eosinophils % 1.2 % (0.00-10.9); Hemoglobin 14.7 GM/DL (12.0-16.0); Immature Granulocytes % 0.3 %; Immature Granulocytes Absolute 0.03 #; Lymphocytes # 3.2 10*3/uL (1.4-4.0); Lymphocytes % 30.3 % (21.3-54.2); Mean Corpuscular Hemoglobin 31 PG (27-34); Mean Corpuscular Volume 88.8 FL (87-102); Monocytes # 0.6 10*3/uL (0.11-0.8); Monocytes % 5.2 % (1.7-12.7); Neutrophils # 6.6 10*3/uL (1.4-7.4); Neutrophils % 62.6 % (38.7-73.9); Platelet Count 344 T/CUMM (130-400); Red Blood Count 4.73 MC/CUMM (3.8-5.5); Red Cell Distribution Width 13.4 % (9.3-17.3)
[2017-09-02 16:28] LABS: White Blood Count 10.6 T/CUMM (4-12)
[2017-09-02 16:52] LABS: Calcium 10.2 MG/DL (8.5-10.1); Osmolality,Calculated 274.5 MOS/KG (273-304); Potassium 3.6 MMOL/L (3.5-5.1)
[2017-09-02 17:16] LABS: INR 0.9; PT Patient Result 9.8 SECS
[2017-09-02 17:46] LABS: Apearance,Urine CLEAR (Clear); Bilirubin,Urine Negative (Negative); Blood, Urine Negative (Negative); Glucose,Urine (UA) Negative (Negative); Ketones,Urine Negative (Negative); Nitrite,Urine Negative (Negative); Protein,Urine Negative; RBC,Urine <1 /HPF (0-4); Squamous Epithelial Cell,Urine Occasional /HPF (0-10); Urine Color Yellow (Yellow); Urine Specific Gravity 1.004 (1.001-1.035); Urine Urobilinogen < 2.0 EU/DL (0.2-1.0); WBC,Urine <1 /HPF (0-6)
[2017-09-02 18:22] LABS: Barbiturates Screen,Urine Negative (Negative); Benzodiazepines Screen,Urine Negative (Negative); Cannabinoid Screen,Urine Positive (Negative); Opiate Screen,Urine Negative (Negative); Phencyclidine Screen,Urine Negative (Negative)
[2017-09-02] MEDS ORDERED: ONDANSETRON 4 MG/2 ML VIAL IV PRN (19:28)
[2017-09-02] MEDS ORDERED: LABETALOL 20 MG/4 ML SYRINGE IV PRN (19:28)
[2017-09-02] MEDS ORDERED: ALBUTEROL 2.5 MG/3 ML NEB RESP TX PRN (19:32)
[2017-09-02] MEDS: MORPHINE 4 MG/1 ML VIAL IV PRN (20:28)
[2017-09-02] MEDS: SODIUM CHLORIDE 0.9% 1,000 ML IV SCH (22:18)
[2017-09-02] MEDS: CLINDAMYCIN 300 MG CAPSULE PO SCH (22:19)
[2017-09-02] MEDS: BUDESONIDE/FORMOTEROL 160-4.5 INHALER 6 GM INH SCH (22:19)
[2017-09-02] MEDS: ENOXAPARIN 40 MG/0.4 ML SYRINGE SUBCUT SCH (22:19)
[2017-09-02] MEDS ORDERED: hydrALAZINE 20 MG/1 ML VIAL IV PRN (23:46)
[2017-09-03] MEDS: MORPHINE 4 MG/1 ML VIAL IV PRN ×2 (01:41→09:17)
[2017-09-03 05:58] LABS: Basophils % 0.3 % (0.0-0.8); Eosinophils # 0.2 10*3/uL (0.0-0.87); Eosinophils % 1.7 % (0.00-10.9); Hematocrit 40.5 VOL% (35.7-47.0); Hemoglobin 13.7 GM/DL (12.0-16.0); Immature Granulocytes % 0.3 %; Immature Granulocytes Absolute 0.03 #; Lymphocytes # 3.3 10*3/uL (1.4-4.0); Lymphocytes % 35.1 % (21.3-54.2); Mean Corpuscular HGB Conc 33.8 GM/DL (32-36); Mean Corpuscular Hemoglobin 31 PG (27-34); Mean Platelet Volume 10.5 FL (9.6-12.0); Monocytes # 0.6 10*3/uL (0.11-0.8); Monocytes % 6.1 % (1.7-12.7); Neutrophils # 5.4 10*3/uL (1.4-7.4); Neutrophils % 56.5 % (38.7-73.9); Platelet Count 339 T/CUMM (130-400); Red Blood Count 4.45 MC/CUMM (3.8-5.5); Red Cell Distribution Width 13.3 % (9.3-17.3); White Blood Count 9.5 T/CUMM (4-12)
[2017-09-03 06:37] LABS: Risk Ratio 4.03; VLDL CHOLESTEROL 59.8 MG/DL
[2017-09-03] MEDS: CLINDAMYCIN 300 MG CAPSULE PO SCH ×3 (06:57→21:51)
[2017-09-03] MEDS: ASPIRIN 300 MG SUPP RECTAL SCH (09:23)
[2017-09-03] MEDS: SODIUM CHLORIDE 0.9% 1,000 ML IV SCH (09:26)
[2017-09-03] MEDS: amLODIPine 5 MG TABLET PO SCH (09:27)
[2017-09-03] MEDS: predniSONE 20 MG TABLET PO SCH (09:27)
[2017-09-03] MEDS: BUDESONIDE/FORMOTEROL 160-4.5 INHALER 6 GM INH SCH (09:30)
[2017-09-03] MEDS ORDERED: SODIUM PHOSPHATE ENEMA 133 ML BOTTLE RECTAL ONE (17:27)
[2017-09-03] MEDS: ENOXAPARIN 40 MG/0.4 ML SYRINGE SUBCUT SCH (21:51)
[2017-09-04] MEDS: BUDESONIDE/FORMOTEROL 160-4.5 INHALER 6 GM INH SCH ×2 (01:19→11:10)
[2017-09-04] MEDS: SODIUM CHLORIDE 0.9% 1,000 ML IV SCH (03:49)
[2017-09-04] MEDS: CLINDAMYCIN 300 MG CAPSULE PO SCH ×2 (07:02→15:13)
[2017-09-04] MEDS ORDERED: ACETAMINOPHEN 325 MG TABLET PO PRN (08:12)
[2017-09-04] MEDS: amLODIPine 5 MG TABLET PO SCH (08:17)
[2017-09-04] MEDS: predniSONE 20 MG TABLET PO SCH (08:17)
[2017-09-04] MEDS: ASPIRIN 300 MG SUPP RECTAL SCH (08:21)
[2017-09-04] MEDS ORDERED: ASPIRIN 325 MG TABLET PO SCH (09:00)
[2017-09-04] MEDS ORDERED: METOPROLOL TARTRATE 25 MG TABLET PO SCH (09:00)
[2017-09-04 11:56] VITALS: BP 126/109
== END 2017-09-04 15:20 | disposition home or self-care (01) | DRG 113 ==
LOC: EDUNIT# → N.ED 14:11 → N.EDINP 18:50 → N.4E 19:51
PROVIDERS: ADMIT Internal Medicine; ATTEND Internal Medicine

== ENCOUNTER 2021-01-06 17:36 | Observation (INO) ==
[2021-01-06 19:12] LABS: Basophils % 0.4 % (0.0-0.8); Eosinophils # 0.2 10*3/uL (0.0-0.87); Eosinophils % 1.7 % (0.00-10.9); Hematocrit 39.2 VOL% (35.7-47.0); Immature Granulocytes % 0.8 %; Immature Granulocytes Absolute 0.08 #; Lymphocytes # 3.1 10*3/uL (1.4-4.0); Lymphocytes % 30.3 % (21.3-54.2); Mean Corpuscular HGB Conc 33.2 GM/DL (32-36); Mean Corpuscular Volume 89.1 FL (87-102); Mean Platelet Volume 9.8 FL (9.6-12.0); Monocytes % 7.5 % (1.7-12.7); Neutrophils % 59.3 % (38.7-73.9); Platelet Count 369 T/CUMM (130-400); Red Cell Distribution Width 14.2 % (9.3-17.3); White Blood Count 10.1 T/CUMM (4-12)
[2021-01-06 19:32] LABS: Albumin 4.2 G/DL (3.4-5.0); Bilirubin,Total 0.4 MG/DL (0.20-1.00); Calcium 9.6 MG/DL (8.5-10.1); Osmolality,Calculated 274.7 MOS/KG (273-304); Potassium 4.4 MMOL/L (3.5-5.1); Total Protein 7.7 G/DL (6.4-8.2)
[2021-01-06 19:37] LABS: Bilirubin,Urine Negative (Negative); Blood, Urine Negative (Negative); Glucose,Urine (UA) Negative (Negative); Hyaline Casts,Urine 3 /LPF (0-3); Ketones,Urine Negative (Negative); Nitrite,Urine Negative (Negative); Protein,Urine Negative; RBC,Urine 3 /HPF (0-4); Squamous Epithelial Cell,Urine Occasional /HPF (0-10); Urine Appearance CLEAR (Clear); Urine Color Straw (Yellow); Urine Specific Gravity 1.008 (1.001-1.035); Urine Urobilinogen < 2.0 EU/DL (0.2-1.0)
[2021-01-06] MEDS ORDERED: hydrALAZINE 20 MG/1 ML VIAL IV STA (20:07)
[2021-01-06] MEDS ORDERED: hydrALAZINE 20 MG/1 ML VIAL IV PRN (20:27)
[2021-01-06] MEDS ORDERED: DEXTROSE 50% 25 GM/50 ML VIAL IV PRN (20:27)
[2021-01-06] MEDS ORDERED: GLUCAGON 1 MG VIAL IM PRN (20:27)
[2021-01-06] MEDS ORDERED: ACETAMINOPHEN 325 MG TABLET PO PRN (20:27)
[2021-01-06] MEDS ORDERED: NICOTINE 21 MG/24 HR PATCH TRANSDERM PRN (20:57)
[2021-01-06] MEDS ORDERED: ENOXAPARIN 40 MG/0.4 ML SYRINGE SUBCUT SCH (21:00)
[2021-01-06] MEDS: SODIUM CHLORIDE 0.9% 1,000 ML IV SCH (21:10)
[2021-01-06 22:20] LABS: Barbiturates Screen,Urine Positive (Negative); Benzodiazepines Screen,Urine Negative (Negative); Cannabinoid Screen,Urine Positive (Negative); Opiate Screen,Urine Negative (Negative); Phencyclidine Screen,Urine Negative (Negative)
[2021-01-06] MEDS ORDERED: ALBUTEROL 2.5 MG/3 ML NEB RESP TX PRN (22:40)
[2021-01-06] MEDS ORDERED: ALBUTEROL 2.5 MG/3 ML NEB RESP TX ONE (22:40)
[2021-01-07] MEDS: ONDANSETRON 4 MG/2 ML VIAL IV PRN ×2 (00:21→06:35)
[2021-01-07] MEDS: MORPHINE 2 MG/1 ML SYRINGE IV PRN ×3 (00:21→10:52)
[2021-01-07 00:41] LABS: Basophils % 0.3 % (0.0-0.8); Eosinophils # 0.1 10*3/uL (0.0-0.87); Eosinophils % 1.4 % (0.00-10.9); Hematocrit 38.9 VOL% (35.7-47.0); Hemoglobin 13.2 GM/DL (12.0-16.0); Immature Granulocytes % 0.5 %; Immature Granulocytes Absolute 0.05 #; Lymphocytes # 3.3 10*3/uL (1.4-4.0); Lymphocytes % 33.8 % (21.3-54.2); Mean Corpuscular HGB Conc 33.9 GM/DL (32-36); Mean Corpuscular Volume 89.6 FL (87-102); Mean Platelet Volume 9.7 FL (9.6-12.0); Monocytes % 7.2 % (1.7-12.7); Neutrophils % 56.8 % (38.7-73.9); Platelet Count 342 T/CUMM (130-400); Red Blood Count 4.34 MC/CUMM (3.8-5.5); Red Cell Distribution Width 14.4 % (9.3-17.3); White Blood Count 9.7 T/CUMM (4-12)
[2021-01-07] MEDS: ALBUTEROL/IPRATROPIUM 3 ML NEB RESP TX SCH ×3 (01:05→14:04)
[2021-01-07 01:14] LABS: Calcium 9.5 MG/DL (8.5-10.1); Osmolality,Calculated 275.5 MOS/KG (273-304); Risk Ratio 4.66; VLDL Cholesterol 61.2 MG/DL
[2021-01-07] MEDS: SODIUM CHLORIDE 0.9% 1,000 ML IV SCH ×2 (08:08→10:53)
[2021-01-07] MEDS ORDERED: NICOTINE 21 MG/24 HR PATCH TRANSDERM SCH (09:00)
[2021-01-07] MEDS ORDERED: PANTOPRAZOLE 40 MG TABLET PO SCH (09:00)
[2021-01-07 14:27] VITALS: BP 116/78
[2021-01-07] MEDS ORDERED: INFLUENZA VIRUS VACCINE 0.5 ML SYRINGE IM ONE (15:08)
[2021-01-07] MEDS ORDERED: ATORVASTATIN 40 MG TABLET PO SCH (21:00)
== END 2021-01-07 16:00 | disposition home or self-care (01) ==
LOC: EDBD → EDUNIT# → N.ED 17:36 → N.EDINP 17:36 → N.ICU 21:16
PROVIDERS: ADMIT Internal Medicine; ATTEND Internal Medicine

== ENCOUNTER 2021-11-24 13:04 | Observation (INO) ==
[2021-11-24 15:47] LABS: Basophils % 0.2 % (0.0-0.8); Eosinophils # 0.1 10*3/uL (0.0-0.87); Hematocrit 42.3 VOL% (35.7-47.0); Hemoglobin 14.2 GM/DL (12.0-16.0); Immature Granulocytes % 0.5 %; Immature Granulocytes Absolute 0.06 #; Lymphocytes # 3.2 10*3/uL (1.4-4.0); Mean Corpuscular HGB Conc 33.6 GM/DL (32-36); Mean Corpuscular Volume 91.6 FL (87-102); Mean Platelet Volume 9.3 FL (9.6-12.0); Monocytes # 0.6 10*3/uL (0.11-0.8); Monocytes % 4.5 % (1.7-12.7); Neutrophils % 67.8 % (38.7-73.9); Platelet Count 411 T/CUMM (130-400); Red Blood Count 4.62 MC/CUMM (3.8-5.5); Red Cell Distribution Width 13.5 % (9.3-17.3); White Blood Count 12.5 T/CUMM (4-12)
[2021-11-24 16:10] LABS: Albumin 3.8 G/DL (3.4-5.0); Bilirubin,Total 0.4 MG/DL (0.20-1.00); Osmolality,Calculated 271.8 MOS/KG (273-304); Potassium 4.4 MMOL/L (3.5-5.1)
[2021-11-24 16:26] LABS: Mucus,Urine Occasional /LPF (Occasional); RBC,Urine 1 /HPF (0-4); Squamous Epithelial Cell,Urine Occasional /HPF (0-10); Urine Appearance Clear (Clear); Urine Color Yellow (Yellow)
[2021-11-24 16:27] LABS: Bilirubin,Urine Negative (Negative); Blood, Urine Negative (Negative); Glucose,Urine (UA) Negative (Negative); Ketones,Urine Trace mg/dL (Negative); Nitrite,Urine Negative (Negative); Protein,Urine Negative (Negative); Urine Urobilinogen 0.2 eU/dL (<2.0)
[2021-11-24 16:48] LABS: Barbiturates Screen,Urine Positive (Negative); Benzodiazepines Screen,Urine Negative (Negative); Cannabinoid Screen,Urine Positive (Negative); Opiate Screen,Urine Negative (Negative); Phencyclidine Screen,Urine Negative (Negative)
[2021-11-24] MEDS ORDERED: NICOTINE 21 MG/24 HR PATCH TRANSDERM PRN (19:09)
[2021-11-24] MEDS ORDERED: ONDANSETRON 4 MG/2 ML VIAL IV PRN (19:09)
[2021-11-24] MEDS ORDERED: DOCUSATE SODIUM 100 MG CAPSULE PO PRN (19:09)
[2021-11-24] MEDS ORDERED: ACETAMINOPHEN 325 MG TABLET PO PRN (19:14)
[2021-11-24] MEDS ORDERED: HydrOXYzine PAMOATE 25 MG CAPSULE PO PRN (19:17)
[2021-11-24] MEDS ORDERED: ALBUTEROL/IPRATROPIUM 3 ML NEB RESP TX PRN (19:20)
[2021-11-24] MEDS: SODIUM CHLORIDE 0.9% 1,000 ML IV SCH (21:59)
[2021-11-24] MEDS: ENOXAPARIN 40 MG/0.4 ML SYRINGE SUBCUT SCH (21:59)
[2021-11-24] MEDS: ATORVASTATIN 40 MG TABLET PO SCH (21:59)
[2021-11-25 05:29] LABS: Basophils % 0.4 % (0.0-0.8); Eosinophils # 0.2 10*3/uL (0.0-0.87); Eosinophils % 1.8 % (0.00-10.9); Hematocrit 41.9 VOL% (35.7-47.0); Hemoglobin 13.9 GM/DL (12.0-16.0); Immature Granulocytes % 0.2 %; Immature Granulocytes Absolute 0.02 #; Lymphocytes # 3.2 10*3/uL (1.4-4.0); Lymphocytes % 32.7 % (21.3-54.2); Mean Corpuscular HGB Conc 33.2 GM/DL (32-36); Mean Corpuscular Volume 90.9 FL (87-102); Mean Platelet Volume 10.2 FL (9.6-12.0); Monocytes # 0.5 10*3/uL (0.11-0.8); Monocytes % 5.5 % (1.7-12.7); Neutrophils % 59.4 % (38.7-73.9); Platelet Count 370 T/CUMM (130-400); Red Blood Count 4.61 MC/CUMM (3.8-5.5); Red Cell Distribution Width 13.2 % (9.3-17.3); White Blood Count 9.6 T/CUMM (4-12)
[2021-11-25 05:50] LABS: Albumin 3.4 G/DL (3.4-5.0); Bilirubin,Total 0.5 MG/DL (0.20-1.00); Calcium 9.6 MG/DL (8.5-10.1); Osmolality,Calculated 270.8 MOS/KG (273-304); Risk Ratio 2.36; Total Protein 6.8 G/DL (6.4-8.2); VLDL Cholesterol 42.4 MG/DL
[2021-11-25] MEDS: guaiFENesin/DM ER 600-30 MG TABLET PO PRN (06:20)
[2021-11-25] MEDS: ASPIRIN EC 81 MG TABLET PO SCH (08:39)
[2021-11-25] MEDS: PANTOPRAZOLE 40 MG TABLET PO SCH (08:39)
[2021-11-25] MEDS: ACETAMINOPHEN 325 MG TABLET PO PRN (08:41)
[2021-11-25] MEDS: amLODIPine 5 MG TABLET PO SCH (08:45)
[2021-11-25] MEDS ORDERED: LORazepam 1 MG TABLET PO ONE (10:06)
[2021-11-25] MEDS: SODIUM CHLORIDE 0.9% 1,000 ML IV SCH (15:29)
[2021-11-25] MEDS: traMADol 50 MG TABLET PO PRN (18:37)
[2021-11-25] MEDS: ATORVASTATIN 40 MG TABLET PO SCH (20:45)
[2021-11-25] MEDS: ENOXAPARIN 40 MG/0.4 ML SYRINGE SUBCUT SCH (20:46)
[2021-11-26] MEDS: traMADol 50 MG TABLET PO PRN ×3 (06:08→22:36)
[2021-11-26] MEDS: guaiFENesin/DM ER 600-30 MG TABLET PO PRN (06:08)
[2021-11-26] MEDS: PANTOPRAZOLE 40 MG TABLET PO SCH (08:58)
[2021-11-26] MEDS: ASPIRIN EC 81 MG TABLET PO SCH (08:58)
[2021-11-26] MEDS: amLODIPine 5 MG TABLET PO SCH (08:58)
[2021-11-26] MEDS: ACETAMINOPHEN 325 MG TABLET PO PRN (09:55)
[2021-11-26 10:49] LABS: Basophils % 0.4 % (0.0-0.8); Eosinophils # 0.1 10*3/uL (0.0-0.87); Eosinophils % 1.3 % (0.00-10.9); Hematocrit 41.2 VOL% (35.7-47.0); Hemoglobin 13.8 GM/DL (12.0-16.0); Immature Granulocytes % 0.2 %; Immature Granulocytes Absolute 0.02 #; Lymphocytes # 2.6 10*3/uL (1.4-4.0); Mean Corpuscular HGB Conc 33.5 GM/DL (32-36); Mean Corpuscular Volume 90.2 FL (87-102); Mean Platelet Volume 10.4 FL (9.6-12.0); Monocytes # 0.5 10*3/uL (0.11-0.8); Monocytes % 5.2 % (1.7-12.7); Neutrophils % 63.9 % (38.7-73.9); Platelet Count 321 T/CUMM (130-400); Red Blood Count 4.57 MC/CUMM (3.8-5.5); Red Cell Distribution Width 13.2 % (9.3-17.3); White Blood Count 9.1 T/CUMM (4-12)
[2021-11-26 11:03] LABS: Calcium 9.3 MG/DL (8.5-10.1); Osmolality,Calculated 267.1 MOS/KG (273-304)
[2021-11-26] MEDS: ATORVASTATIN 40 MG TABLET PO SCH (20:46)
[2021-11-26] MEDS: ENOXAPARIN 40 MG/0.4 ML SYRINGE SUBCUT SCH (20:46)
[2021-11-27 05:08] LABS: Basophils % 0.5 % (0.0-0.8); Eosinophils # 0.2 10*3/uL (0.0-0.87); Hematocrit 40.4 VOL% (35.7-47.0); Hemoglobin 13.5 GM/DL (12.0-16.0); Immature Granulocytes % 0.2 %; Immature Granulocytes Absolute 0.02 #; Lymphocytes # 3.1 10*3/uL (1.4-4.0); Lymphocytes % 36.5 % (21.3-54.2); Mean Corpuscular HGB Conc 33.4 GM/DL (32-36); Mean Platelet Volume 9.9 FL (9.6-12.0); Monocytes # 0.6 10*3/uL (0.11-0.8); Monocytes % 6.8 % (1.7-12.7); Platelet Count 362 T/CUMM (130-400); Red Blood Count 4.44 MC/CUMM (3.8-5.5); Red Cell Distribution Width 12.9 % (9.3-17.3); White Blood Count 8.6 T/CUMM (4-12)
[2021-11-27 05:25] LABS: Calcium 9.6 MG/DL (8.5-10.1); Osmolality,Calculated 271.8 MOS/KG (273-304); Potassium 3.8 MMOL/L (3.5-5.1)
[2021-11-27] MEDS ORDERED: MAGNESIUM SULF RIDER 2 GM/50 ML PREMIX IV ONE (07:33)
[2021-11-27] MEDS: guaiFENesin/DM ER 600-30 MG TABLET PO PRN (07:43)
[2021-11-27] MEDS: PANTOPRAZOLE 40 MG TABLET PO SCH ×2 (07:44→09:31)
[2021-11-27] MEDS: traMADol 50 MG TABLET PO PRN (07:44)
[2021-11-27] MEDS: ASPIRIN EC 81 MG TABLET PO SCH ×2 (07:44→09:31)
[2021-11-27 12:06] VITALS: BP 130/89
== END 2021-11-27 13:32 | disposition home or self-care (01) ==
LOC: EDUNIT# → EDBD → N.TELES 13:04 → N.ED 13:04 → SUATTDRO 19:08 → N.TELES 21:20
PROVIDERS: ADMIT Internal Medicine; ATTEND Emergency Medicine